=== PATIENT | male | born 1955 | race Native Hawaiian/Other Pacific Islander ===

== ENCOUNTER 2016-12-09 16:24 | Emergency (ER) | payer OTHER ==
[~2016-12-09] VITALS: Ht 167.6 cm; Wt 90.9 kg
[2016-12-09] MEDS ORDERED: PredniSONE 20 MG TABLET PO ONE (19:30)
[2016-12-09] MEDS ORDERED: DiphenhydrAMINE HCL 25 MG CAPSULE PO ONE (19:30)
[2016-12-09] MEDS ORDERED: KETOROLAC TROMETHAMINE 30 MG/ML VIAL IM ONE (19:30)
[2016-12-09] MEDS ORDERED: HYDROCODONE/ACETAMINOPHEN 5-325 MG TABLET PO ONE (19:30)
[2016-12-09 20:17] VITALS: BP 137/75
== END 2016-12-09 20:21 | disposition home or self-care (01) ==
LOC: EMS 16:27
DX: M54.31 Sciatica, right side (principal); L30.8 Other specified dermatitis; F17.210 Nicotine dependence, cigarettes, uncomplicated; F15.90 Other stimulant use, unspecified, uncomplicated
CPT/HCPCS: 96372; 99284; J1885; J7512